=== PATIENT | female | born 1965 | race Caucasian/White ===

== ENCOUNTER → 2019-06-29 11:47 | Outpatient (BNVA) | payer MEDICAID, SELFPAY | PROVIDERS: Family Provider Nurse Practitioner; Visit Provider Nurse Practitioner Family | DX: E03.9 Hypothyroidism, unspecified (principal); Z79.899 Other long term (current) drug therapy; E55.9 Vitamin D deficiency, unspecified; E78.2 Mixed hyperlipidemia; L03.116 Cellulitis of left lower limb; R60.0 Localized edema | CPT/HCPCS: 80053; 80061; 81001; 82306; 83036; 83880; 84443; 85025; 87070 ==

== ENCOUNTER → 2019-07-04 11:00 | Outpatient (BNVA) | payer MEDICAID, SELFPAY | PROVIDERS: Family Provider Nurse Practitioner; Visit Provider Nurse Practitioner Family | DX: E03.9 Hypothyroidism, unspecified (principal); Z79.899 Other long term (current) drug therapy; E55.9 Vitamin D deficiency, unspecified; E78.2 Mixed hyperlipidemia; L03.116 Cellulitis of left lower limb; R60.0 Localized edema; D64.9 Anemia, unspecified; E11.9 Type 2 diabetes mellitus without complications | CPT/HCPCS: 82607; 83540 ==

== ENCOUNTER → 2019-07-19 13:44 | Outpatient (BNVA) | payer MEDICAID, SELFPAY | PROVIDERS: Family Provider Nurse Practitioner; Referring Provider Nurse Practitioner Family; Visit Provider Obstetrics & Gynecology Female Pelvic Medicine and Reconstructive Surgery | DX: Z12.4 Encounter for screening for malignant neoplasm of cervix (principal); N39.41 Urge incontinence; Z12.39 Encounter for other screening for malignant neoplasm of breast; N95.0 Postmenopausal bleeding; E66.01 Morbid (severe) obesity due to excess calories | CPT/HCPCS: 81003; 87086; 88175 ==

== ENCOUNTER → 2019-07-29 13:47 | Outpatient (BNVA) | payer MEDICAID, SELFPAY | PROVIDERS: Family Provider Nurse Practitioner; Referring Provider Obstetrics & Gynecology Female Pelvic Medicine and Reconstructive Surgery; Visit Provider Obstetrics & Gynecology Female Pelvic Medicine and Reconstructive Surgery | DX: N95.0 Postmenopausal bleeding (principal) | CPT/HCPCS: 76830 ==

== ENCOUNTER → 2019-08-03 08:20 | Outpatient (BNVA) | payer MEDICAID, SELFPAY | PROVIDERS: Family Provider Nurse Practitioner; Visit Provider Nurse Practitioner Family | DX: R31.9 Hematuria, unspecified (principal); E11.9 Type 2 diabetes mellitus without complications; M54.41 Lumbago with sciatica, right side; M54.42 Lumbago with sciatica, left side; G89.29 Other chronic pain | CPT/HCPCS: 36416; 80053; 81003; 82962 ==

== ENCOUNTER → 2019-08-10 07:36 | Outpatient (BNVA) | payer MEDICAID, SELFPAY | PROVIDERS: Family Provider Nurse Practitioner; Visit Provider Obstetrics & Gynecology Female Pelvic Medicine and Reconstructive Surgery | DX: N95.0 Postmenopausal bleeding (principal) | CPT/HCPCS: 88305 ==

== ENCOUNTER → 2019-08-30 11:58 | Outpatient (BNVA) | payer MEDICAID, SELFPAY | PROVIDERS: Family Provider Nurse Practitioner; Visit Provider Nurse Practitioner Family | DX: R31.9 Hematuria, unspecified (principal); E11.9 Type 2 diabetes mellitus without complications | CPT/HCPCS: 80053; 81003 ==

== ENCOUNTER → 2020-02-15 11:01 | Outpatient (BNVA) | payer MEDICAID, SELFPAY | PROVIDERS: Family Provider Nurse Practitioner; Visit Provider Nurse Practitioner Family | DX: E11.9 Type 2 diabetes mellitus without complications (principal); L03.90 Cellulitis, unspecified; E03.9 Hypothyroidism, unspecified; E55.9 Vitamin D deficiency, unspecified; E78.2 Mixed hyperlipidemia; M79.606 Pain in leg, unspecified | CPT/HCPCS: 80053; 80061; 81003; 82306; 83036; 83735; 84100; 84443; 85025 ==

== ENCOUNTER 2020-02-17 13:56 | Outpatient (CLI) | payer MEDICAID, SELFPAY ==
--- NOTE | 2020-02-17 14:15 | USCV_ITS ---
SantoyoDahiana negrete Age: 55 Gender: F : 1965 Exam Date: 02/17/2020 14:12 Ordering Phys: GERARD Álvarez APRN Technologist: Demian Milton Exam Location: [facility] [place]: LT LEG PAIN AND EDEMA HISTORY: Lower extremity swelling. Lower extremity edema. PROCEDURES: Venous duplex imaging was performed in only the left lower extremity. The following venous structures were evaluated: common femoral vein, profunda vein, proximal portion of the greater saphenous vein, superficial femoral vein, and the popliteal vein. FINDINGS: Normal 2-D Doppler and augmentation and compressibility throughout the lower extremity venous structures. Additional imaging through the proximal calf veins also reveals no thrombus. Limited evaluation of the greater saphenous vein is patent with no thrombus. CONCLUSIONS No DVT left lower extremity. Dr. Milena Jones DO (Electronically Signed) Final Date: 20 February 2020 08:16 S
== END 2020-02-17 13:57 | disposition home or self-care (01) ==
PROVIDERS: PCP Nurse Practitioner Family; Visit Provider Nurse Practitioner Family
DX: L03.90 Cellulitis, unspecified (principal); R60.0 Localized edema; M79.605 Pain in left leg
CPT/HCPCS: 93971

== ENCOUNTER 2020-03-05 13:06 | Outpatient (CLI) | payer MEDICAID, SELFPAY | END 2020-03-05 13:07 | disposition home or self-care (01) | LOC: WOUND 13:06 | PROVIDERS: PCP Nurse Practitioner Family; Visit Provider Thoracic Surgery (Cardiothoracic Vascular Surgery) | DX: E11.622 Type 2 diabetes mellitus with other skin ulcer (principal); L97.822 Non-pressure chronic ulcer of other part of left lower leg with fat layer exposed; L03.116 Cellulitis of left lower limb | CPT/HCPCS: 11042; 11045; G0463 ==

== ENCOUNTER 2020-03-12 14:34 | Outpatient (CLI) | payer MEDICAID, SELFPAY | END 2020-03-12 14:35 | disposition home or self-care (01) | LOC: WOUND 14:35 | PROVIDERS: PCP Nurse Practitioner Family; Visit Provider Thoracic Surgery (Cardiothoracic Vascular Surgery) | DX: E11.622 Type 2 diabetes mellitus with other skin ulcer (principal); L97.822 Non-pressure chronic ulcer of other part of left lower leg with fat layer exposed; L03.116 Cellulitis of left lower limb | CPT/HCPCS: 11042; 11045 ==

== ENCOUNTER → 2020-03-16 10:17 | Outpatient (BNVA) | payer MEDICAID, SELFPAY | PROVIDERS: PCP Nurse Practitioner Family; Visit Provider Nurse Practitioner Family | DX: I10 Essential (primary) hypertension (principal); E11.9 Type 2 diabetes mellitus without complications; Z79.899 Other long term (current) drug therapy | CPT/HCPCS: 80053; 83880; 85025; 87070 ==

== ENCOUNTER 2020-03-19 15:28 | Outpatient (CLI) | payer MEDICAID, SELFPAY | END 2020-03-19 15:29 | disposition home or self-care (01) | LOC: WOUND 15:29 | PROVIDERS: PCP Nurse Practitioner Family; Visit Provider Thoracic Surgery (Cardiothoracic Vascular Surgery) | DX: E11.622 Type 2 diabetes mellitus with other skin ulcer (principal); L97.822 Non-pressure chronic ulcer of other part of left lower leg with fat layer exposed; L03.116 Cellulitis of left lower limb | CPT/HCPCS: 11042; A6530 ==

== ENCOUNTER 2020-03-26 15:20 | Outpatient (CLI) | payer MEDICAID, SELFPAY | END 2020-03-26 15:21 | disposition home or self-care (01) | LOC: WOUND 15:21 | PROVIDERS: PCP Nurse Practitioner Family; Visit Provider Nurse Practitioner Family | DX: Z09 Encounter for follow-up examination after completed treatment for conditions other than malignant neoplasm (principal) | CPT/HCPCS: A6530 ==

== ENCOUNTER 2020-07-03 06:00 | Outpatient (RCR) | payer MEDICAID, SELFPAY | END 2020-07-08 23:59 | disposition home or self-care (01) | LOC: WPT 06:00 | PROVIDERS: PCP Family Medicine; Referring Provider Nurse Practitioner Family; Visit Provider Nurse Practitioner Family | DX: M54.9 Dorsalgia, unspecified (principal); G89.29 Other chronic pain; M54.2 Cervicalgia | CPT/HCPCS: 97163 ==

== ENCOUNTER → 2020-09-17 11:55 | Outpatient (BNVA) | payer MEDICAID, SELFPAY | PROVIDERS: PCP Family Medicine; Visit Provider Family Medicine | DX: E55.9 Vitamin D deficiency, unspecified (principal); E11.69 Type 2 diabetes mellitus with other specified complication; M54.16 Radiculopathy, lumbar region; M54.9 Dorsalgia, unspecified; G89.29 Other chronic pain; M54.2 Cervicalgia; M54.12 Radiculopathy, cervical region; M17.0 Bilateral primary osteoarthritis of knee; E03.9 Hypothyroidism, unspecified; E78.2 Mixed hyperlipidemia; R22.9 Localized swelling, mass and lump, unspecified | CPT/HCPCS: 83036; 84443 ==

== ENCOUNTER → 2021-03-18 12:03 | Outpatient (BNVA) | payer MEDICAID, SELFPAY | PROVIDERS: PCP Family Medicine; Visit Provider Family Medicine | DX: M54.9 Dorsalgia, unspecified (principal); G89.29 Other chronic pain; M54.2 Cervicalgia; M54.12 Radiculopathy, cervical region; M17.0 Bilateral primary osteoarthritis of knee; M54.16 Radiculopathy, lumbar region; E11.69 Type 2 diabetes mellitus with other specified complication | CPT/HCPCS: 80307; 83036 ==

== ENCOUNTER → 2021-04-09 11:13 | Outpatient (BNVA) | payer MEDICAID, SELFPAY | PROVIDERS: PCP Family Medicine; Visit Provider Family Medicine | DX: M54.2 Cervicalgia (principal); G89.29 Other chronic pain; M16.0 Bilateral primary osteoarthritis of hip; M54.16 Radiculopathy, lumbar region; M54.12 Radiculopathy, cervical region; M25.552 Pain in left hip; M25.551 Pain in right hip; M25.562 Pain in left knee; M17.12 Unilateral primary osteoarthritis, left knee; M54.50 Low back pain, unspecified | CPT/HCPCS: 72040; 72100; 73523; 73560 ==

== ENCOUNTER → 2021-07-10 11:38 | Outpatient (BNVA) | payer MEDICAID, SELFPAY | PROVIDERS: PCP Family Medicine; Visit Provider Family Medicine | DX: Z12.31 Encounter for screening mammogram for malignant neoplasm of breast (principal); M54.16 Radiculopathy, lumbar region; M54.9 Dorsalgia, unspecified; G89.29 Other chronic pain; M54.2 Cervicalgia; M54.12 Radiculopathy, cervical region; M17.0 Bilateral primary osteoarthritis of knee; I10 Essential (primary) hypertension; E03.9 Hypothyroidism, unspecified; E78.2 Mixed hyperlipidemia; E11.69 Type 2 diabetes mellitus with other specified complication | CPT/HCPCS: 80053; 83036; 84443 ==

== ENCOUNTER → 2021-10-03 14:11 | Outpatient (BNVA) | payer MEDICAID, SELFPAY | PROVIDERS: PCP Family Medicine; Visit Provider Family Medicine | DX: M54.16 Radiculopathy, lumbar region (principal); M54.9 Dorsalgia, unspecified; G89.29 Other chronic pain; M54.2 Cervicalgia; M54.12 Radiculopathy, cervical region; M17.0 Bilateral primary osteoarthritis of knee; I10 Essential (primary) hypertension; E03.9 Hypothyroidism, unspecified; E78.2 Mixed hyperlipidemia; E11.69 Type 2 diabetes mellitus with other specified complication; E55.9 Vitamin D deficiency, unspecified; R60.0 Localized edema; Z79.899 Other long term (current) drug therapy; M25.512 Pain in left shoulder; E66.01 Morbid (severe) obesity due to excess calories; Z12.31 Encounter for screening mammogram for malignant neoplasm of breast | CPT/HCPCS: 80307 ==

== ENCOUNTER → 2022-02-05 11:30 | Outpatient (BNVA) | payer MEDICAID, SELFPAY | PROVIDERS: PCP Family Medicine; Visit Provider Family Medicine | DX: E11.9 Type 2 diabetes mellitus without complications (principal); E11.69 Type 2 diabetes mellitus with other specified complication; M54.9 Dorsalgia, unspecified; G89.29 Other chronic pain; M54.2 Cervicalgia; Z53.20 Procedure and treatment not carried out because of patient's decision for unspecified reasons; Z71.6 Tobacco abuse counseling | CPT/HCPCS: 83036 ==

== ENCOUNTER → 2024-01-05 15:27 | Outpatient (BNVA) | payer MEDICAID, SELFPAY | PROVIDERS: PCP Family Medicine; Visit Provider Nurse Practitioner Family | DX: I10 Essential (primary) hypertension (principal); E78.2 Mixed hyperlipidemia; E11.69 Type 2 diabetes mellitus with other specified complication; E03.9 Hypothyroidism, unspecified; E55.9 Vitamin D deficiency, unspecified | CPT/HCPCS: 80053; 80061; 81003; 82306; 83036; 84443; 85025 ==

== ENCOUNTER → 2024-02-26 11:56 | Outpatient (BNVA) | payer MEDICAID, SELFPAY | PROVIDERS: PCP Family Medicine; Visit Provider Surgery | DX: Z98.890 Other specified postprocedural states (principal) | CPT/HCPCS: 99204 ==

== ENCOUNTER → 2024-09-28 16:10 | Outpatient (BNVA) | payer MEDICAID, SELFPAY | PROVIDERS: PCP Family Medicine; Visit Provider Nurse Practitioner Family | DX: E11.69 Type 2 diabetes mellitus with other specified complication (principal) | CPT/HCPCS: 80053; 81003; 83036; 84443; 87086 ==

== ENCOUNTER → 2024-10-06 15:22 | Outpatient (BNVA) | payer MEDICAID, SELFPAY | PROVIDERS: PCP Family Medicine; Visit Provider Nurse Practitioner Family | DX: N39.0 Urinary tract infection, site not specified (principal); B96.20 Unspecified Escherichia coli [E. coli] as the cause of diseases classified elsewhere | CPT/HCPCS: 81003 ==